=== PATIENT | male | born 1965 | race Caucasian/White ===

== ENCOUNTER 2024-11-05 06:47 | Day surgery (SDC) | payer MEDICARE, OTHER ==
[~2024-11-05] VITALS: Ht 177.8 cm; Wt 108.9 kg
[2024-11-05] MEDS ORDERED: SODIUM CHLORIDE 0.9% 10 ML SYR ONE ×2 (06:53→07:17)
[2024-11-05] MEDS ORDERED: LIDOCAINE HCL 1% (10MG/ML) 100 MG/10 ML MDV ONE ×2 (07:05→07:32)
[2024-11-05] MEDS ORDERED: LISINOPRIL20 M1 PO (07:07)
[2024-11-05] MEDS ORDERED: MIDAZOLAM HCL 2 MG/2 ML VIAL ONE (07:07)
[2024-11-05] MEDS ORDERED: METFORMIN500 M2 PO (07:08)
[2024-11-05] MEDS ORDERED: GLIPIZIDE10 M3 PO (07:09)
[2024-11-05] MEDS ORDERED: LORTAB 1010 MG PO (07:10)
[2024-11-05] MEDS ORDERED: LYRICA150 MG PO (07:11)
[2024-11-05] MEDS ORDERED: AMBIEN10 MG PO (07:12)
[2024-11-05] MEDS ORDERED: CIALIS20 MG PO (07:14)
[2024-11-05] MEDS ORDERED: LIDOCAINE PATCH 55 % TOP (07:15)
[2024-11-05] MEDS ORDERED: DICLOFENAC (07:16)
[2024-11-05] MEDS ORDERED: IBUPROFEN600 MG PO (07:17)
[2024-11-05] MEDS ORDERED: ASPIRIN 81 LOW81 MG PO (07:18)
[2024-11-05] MEDS ORDERED: MELATONIN3 M1 PO (07:18)
[2024-11-05] MEDS ORDERED: PROSTATE SUPPOR PO (07:19)
[2024-11-05] MEDS ORDERED: FISH OIL1000 M1 PO (07:20)
[2024-11-05] MEDS ORDERED: SUPER B-COMPLEX PO (07:20)
[2024-11-05] MEDS ORDERED: VITAMIN D-32000 UNI1 PO (07:21)
[2024-11-05] MEDS ORDERED: MULTI VIT PO (07:21)
[2024-11-05 08:41] VITALS: BP 156/89
== END 2024-11-05 08:35 | disposition home or self-care (01) ==
LOC: ORM 06:47
PROVIDERS: ATTEND Student in an Organized Health Care Education/Training Program
DX: M47.816 Spondylosis without myelopathy or radiculopathy, lumbar region (principal); Z11.52 Encounter for screening for COVID-19; G89.4 Chronic pain syndrome